=== PATIENT | male | born 1955 | race Caucasian/White ===

== ENCOUNTER 2021-09-18 14:23 | Emergency (ER) | payer MEDICARE, SELFPAY ==
[2021-09-18 14:28] VITALS: BP 202/93; PULSE 76; RESP 22; TEMP 36.6; O2SAT 100; BMI 26.3
--- NOTE | 2021-09-18 14:37 | XR_ITS ---
WS: [id number] Portable AP upright chest, 09/18/2021 Clinical Data: chest pain Comparison: Portable chest, 09/23/2017. Findings: No nodules, masses or effusions are seen. The heart is normal. The pulmonary vascularity is not increased. No pneumonia or pneumothorax is seen. The aortic arch and descending thoracic aorta s how tortuosity. Monitor leads are on the chest wall. XR/XR chest 1V portable [id number] Impression: Atherosclerosis.
--- NOTE | 2021-09-18 14:37 | ECG_ITS ---
[facility] Test Date: 2021-09-18 Pat Name: Deny Santiago Department: Room: Gender: Male Crm Developer: : 1955 Requested By: Levon Porter Order Number: [id number] Lakisha MD: Luis Manuel Duff M.D. Measurements Intervals [place] Rate: 89 P: 39 IN: 191 QRS: 46 QRSD: 102 T: 8 QT: 373 QTc: 456 Interpretive Statements SINUS RHYTHM WITH OCCASIONAL VENTRICULAR PREMATURE COMPLEXES INCOMPLETE RIGHT BUNDLE BRANCH BLOCK [90+ ms QRS DURATION, TERMINAL R IN V1/V2, 40+ ms S IN I/aVL/V4/V5/V6] NONSPECIFIC T-WAVE ABNORMALITY Compared to ECG 09/23/2017 17:57:59 Ventricular premature complex(es) now present Incomplete right bundle-branch block now present First degree AV block no longer present T-wave abnormality still present Electronically Signed On 09-18-2021 20:42:56 CDT by Luis Manuel Duff M.D. [email or web address] Values/store/NU/[id number] f
[2021-09-18] MEDS: aspirin 81 mg Chew Tablet 324 MG PO (14:45)
--- NOTE | 2021-09-18 14:45 | W.ED.CHESTPA ---
HPI - Chest Pain General: Chief Complaint: Chest Pain Stated Complaint: SOB/tingling of feet/chest pressure Time Seen by Provider: 09/18/21 14:37 Source: patient Mode of arrival: ambulatory Limitations: no limitations History of Present Illness: 66-year-old male presents emergency room complaining of chest pain and pressure or shortness of breath. Began he had been riding a tractor baling hay he was outside for about 30 minutes. He began to have some palpitations he states is felt like his heart relieve out of his chest. He has no known coronary artery disease he is not diabetic nor does he smoke. No previous cardiac evaluation. Does state the pain radiates into his shoulders and his neck. At the worst the pain is a 4-5 it is now down to a 2. MD complaint: chest pain Onset (ago): minute(s) Timing of current episode: episodic Prior episodes: Yes Onset: during rest Pain location: substernal and left chest Pain radiation: neck, left shoulder and right shoulder Severity: moderate Quality: aching and heaviness Relieving factors: rest Exacerbating factors: nothing Associated symptoms: Reports dyspnea and sense of impending doom; Deny abdominal pain, diaphoresis, fever(s), leg edema, nausea, palpitations, syncope or vomiting Treatment prior to arrival: none Review of Systems Const: Denies: fever(s) or diaphoresis ENMT: Denies: throat pain, ear or mastoid pain, nasal discharge or nasal congestion Card: Denies: palpitations or syncope Resp: Reports: dyspnea GI: Denies: abdominal pain, nausea or vomiting : Denies: flank pain, dysuria, urinary frequency or urinary urgency Musc: Reports: neck pain Skin/Breast: Denies: rash or pruritus PFS ED PFSH: Medical History (Updated 09/18/21 @ 17:34 by Levon Britton DO) Hypertension Physical Exam Const: COMMON NORMALS: no acute distress GENERAL APPEARANCE: cooperative and comfortable ORIENTATION/CONSCIOUSNESS: Yes awake, Yes oriented to person, Yes oriented to place and Yes oriented to time HENMT: COMMON NORMALS: normocephalic, atraumatic and hearing grossly normal bilaterally HEAD & SCALP: normocephalic and atraumatic Neck/C-Spine: COMMON NORMALS: no JVD Resp: COMMON NORMALS: normal respiratory effort, No retractions, No use of accessory muscles and clear to auscultation bilaterally AUSCULTATION: clear to auscultation bilaterally Cardio: COMMON NORMALS: no JVD, regular rate, regular rhythm and No murmurs present (Cardio) RATE: regular rate RHYTHM: regular rhythm GI: COMMON NORMALS: Soft to palpation and No hepatosplenomegaly present AUSCULTATION: Yes normoactive bowel sounds PALPATION: Yes Soft to palpation, No Tenderness to palpation present (GI), No Guarding due to palpation present (GI) and Yes No hepatosplenomegaly present Extremity: COMMON NORMALS: normal to inspection, capillary refill normal, no clubbing, cyanosis or edema, no calf tenderness and no pedal edema Neuro: SENSORIUM/ORIENTATION: Yes oriented to person, Yes oriented to place and Yes oriented to time Skin: COMMON NORMALS: no rashes or lesions noted GENERAL SKIN EXAM: no rashes or lesions noted Course Vital Signs: Vital signs: Vital Signs Temperature 97.9 F 09/18/21 14:28 Pulse Rate 76 09/18/21 14:28 Respiratory Rate 22 H 09/18/21 14:28 Blood Pressure 202/93 09/18/21 14:28 Pulse Oximetry 100 09/18/21 14:28 MDM - Chest Pain Medical Decision Making Symptoms have resolved at this point. Patient states he feels fine and prefer to go home. We will start him on aspirin 81 mg daily also add isosorbide mononitrate his blood pressure is elevated yet. We will set him up for an outpatient Lexiscan sestamibi stress if she has any recurrence of symptoms or worsening symptoms return to the emergency room. Medical Records I reviewed the patient's medical records. Lab Data I reviewed the patient's lab results. : 09/18/21 14:40 09/18/21 14:40 Radiology Impressions Chest X-Ray 09/18/21 14:37 Impression: Atherosclerosis. Laboratory Results WBC 10.1 10^3/uL (4.0-10.0) H 09/18/21 14:40 RBC 5.09 10^6/uL (4.1-5.3) 09/18/21 14:40 Hgb 15.3 g/dL (11.7-16.6) 09/18/21 14:40 Hct 42.6 % (42.0-52.0) 09/18/21 14:40 MCV 83.7 fl (80-94) 09/18/21 14:40 MCH 30.1 pg (28.0-34.0) 09/18/21 14:40 MCHC 35.9 g/dL (30.0-36.0) 09/18/21 14:40 RDW 12.4 % (12.1-15.1) 09/18/21 14:40 Plt Count 284 10^3/cmm (130-400) 09/18/21 14:40 MPV 9.6 fL (7.4-10.4) 09/18/21 14:40 Neut % (Auto) 67.3 % 09/18/21 14:40 Lymph % (Auto) 20.1 % 09/18/21 14:40 [place] % (Auto) 10.0 % 09/18/21 14:40 Eos % (Auto) 1.9 % 09/18/21 14:40 Baso % (Auto) 0.5 % 09/18/21 14:40 Neut # (Auto) 6.82 10^3/uL (1.8-7.7) 09/18/21 14:40 Lymph # (Auto) 2.0 10^3/uL (0.8-4.8) 09/18/21 14:40 [place] # (Auto) 1.0 10^3/uL (0.2-0.9) H 09/18/21 14:40 Eos # (Auto) 0.2 10^3/uL (0.0-0.8) 09/18/21 14:40 Baso # (Auto) 0.1 10^3/uL (0.0-0.1) 09/18/21 14:40 Nucleated RBC % (auto) 0 % 09/18/21 14:40 Nucleated RBCs # 0.0 /100WBC 09/18/21 14:40 Sodium 139 mmol/L (136-145) 09/18/21 14:40 Potassium 3.7 mmol/L (3.5-5.1) 09/18/21 14:40 Chloride 102 mmol/L (98-107) 09/18/21 14:40 Carbon Dioxide 20 mmol/L (22-29) L 09/18/21 14:40 Anion Gap 20.7 (5-19) H 09/18/21 14:40 BUN 16 mg/dL (8-23) 09/18/21 14:40 Creatinine 1.0 mg/dL (0.7-1.2) 09/18/21 14:40 GFR Calculation 75.0 mL/min (90-130) L 09/18/21 14:40 Glucose 162 mg/dL (65-115) H 09/18/21 14:40 Calculated Osmolality 293 mOsm/kg (285-295) 09/18/21 14:40 Calcium 10.0 mg/dL (8.5-10.5) 09/18/21 14:40 Total Bilirubin 0.5 mg/dL (0.15-1.2) 09/18/21 14:40 AST 18 U/L (0-40) 09/18/21 14:40 ALT 22 U/L (0-41) 09/18/21 14:40 Alkaline Phosphatase 78 IU/L (40-130) 09/18/21 14:40 Troponin T Baseline 14 ng/L (0-15) 09/18/21 14:40 Troponin T 120 Minute 14.09 ng/L (0-15) 09/18/21 16:34 Delta Troponin T 0.09 ABS# (0-10) 09/18/21 16:34 Total Protein 8.0 g/dL (6.6-8.7) 09/18/21 14:40 Albumin 4.9 g/dL (3.5-5.2) 09/18/21 14:40 Globulin 3.1 g/dL (1.3-4.6) 09/18/21 14:40 Discharge Plan Discharge Patient Disposition: Home Clinical Impression: Atypical chest pain, Hypertension Condition: Stable Prescriptions: New aspirin 81 mg tablet,delayed release (DR/EC) 81 mg PO DAILY Qty: 30 0RF isosorbide mononitrate 30 mg tablet extended release 24 hr 30 mg PO DAILY Qty: 30 0RF No Action potassium chloride 10 mEq capsule, extended release 10 meq PO BID 0RF amlodipine 10 mg tablet 10 mg PO QAM 0RF hydrochlorothiazide 25 mg tablet 25 mg PO DAILY 0RF lisinopril 40 mg tablet 40 mg PO BID 0RF atenolol 50 mg tablet 50 mg PO QAM 0RF Sinus Nasal [place] 0.05 % [place],Non-Aerosol 2 spray INTRANASAL DAILY PRN (Reason: Sinus Symptoms) 0RF Discharge Orders: Discharge ED (Routine); Ordered 09/18/21 Ordered By: Levon Britton Discharge Diet: Usual diet Discharge Activity: Limit activity as instructed Patient Instructions: Opioid Safety Activity Restrictions/Additional Instructions: Avoid strenuous activity. Case management make arrangements for an outpatient cardiac stress test. Return if you have further problems. Continue baby aspirin daily. Coding Level of Care Code ED Implementation Analyst for Shaquille Fwd Exam Comprehensive
--- NOTE | 2021-09-18 14:46 | PC.NURSE ---
PT PLACED ON CONTINUOUS SPO2, NIBP, AND CM.
[2021-09-18] MEDS: nitroglycerin 1 gm/inch oint Pkt 1 INCH TOPICAL (14:49)
[2021-09-18 14:53] LABS: Basophils # 0.1 10^3/uL (0.0-0.1); Basophils % 0.5 %; Eosinophils # 0.2 10^3/uL (0.0-0.8); Eosinophils % 1.9 %; Hematocrit 42.6 % (42.0-52.0); Hemoglobin 15.3 g/dL (11.7-16.6); Lymphocytes % 20.1 %; Mean Corpuscular HGB Conc 35.9 g/dL (30.0-36.0); Mean Corpuscular Hemoglobin 30.1 pg (28.0-34.0); Mean Corpuscular Volume 83.7 fl (80-94); Mean Platelet Volume 9.6 fL (7.4-10.4); Neutrophils # 6.82 10^3/uL (1.8-7.7); Neutrophils % 67.3 %; Nucleated Red Blood Cells % 0 %; Platelet Count 284 10^3/cmm (130-400); Red Blood Count 5.09 10^6/uL (4.1-5.3); Red Cell Distribution Width 12.4 % (12.1-15.1); White Blood Count 10.1 10^3/uL (4.0-10.0)
[2021-09-18 15:15] LABS: Troponin(5th) Baseline 14 ng/L (0-15)
[2021-09-18 15:16] LABS: Alanine Aminotransferase 22 U/L (0-41); Albumin Level 4.9 g/dL (3.5-5.2); Alkaline Phosphatase 78 IU/L (40-130); Anion Gap 20.7 (5-19); Aspartate Amino Transferase 18 U/L (0-40); Blood Urea Nitrogen 16 mg/dL (8-23); Carbon Dioxide 20 mmol/L (22-29); Chloride 102 mmol/L (98-107); Globulin 3.1 g/dL (1.3-4.6); Glucose 162 mg/dL (65-115); Osmolality Calculated 293 mOsm/kg (285-295); Potassium 3.7 mmol/L (3.5-5.1); Sodium 139 mmol/L (136-145); Total Bilirubin 0.5 mg/dL (0.15-1.2)
--- NOTE | 2021-09-18 16:37 | ECG_ITS ---
[facility] Test Date: 2021-09-18 Pat Name: Deny Santiago Department: Room: Gender: Male Technical Illustrator: : 1955 Requested By: Levon Porter Order Number: [id number] Lakisha MD: Luis Manuel Duff M.D. Measurements Intervals [place] Rate: 75 P: 35 MD: 205 QRS: 33 QRSD: 98 T: -5 QT: 391 QTc: 438 Interpretive Statements SINUS RHYTHM NONSPECIFIC T-WAVE ABNORMALITY Compared to ECG 09/18/2021 13:42:48 Ventricular premature complex(es) no longer present Incomplete right bundle-branch block no longer present T-wave abnormality still present Electronically Signed On 09-18-2021 20:45:14 CDT by Luis Manuel Duff M.D. [email or web address]/store/OM/[id number]/[id number]
[2021-09-18 17:05] LABS: Troponin 5 2HR 14.09 ng/L (0-15)
[2021-09-18 17:40] LABS: Troponin 5 2HR Delta 0.09 ABS# (0-10)
[2021-09-18 17:55] VITALS: BP 143/94; PULSE 79; RESP 16; O2SAT 97
--- NOTE | 2021-09-21 08:08 | DCPLANNER ---
grievance manager had message to schedule an outpatient stress test for patient. grievance manager called phone number [phone] to speak with patient to confirm that patient wanted the stress test scheduled and to confirm who patient sees for primary care. grievance manager was unable to speak with patient and unable to leave a voicemail for patient.
== END 2021-09-18 17:56 | disposition home or self-care (01) ==
PROVIDERS: Emergency Provider Family Medicine
DX: R07.89 Other chest pain (principal); I10 Essential (primary) hypertension
CPT/HCPCS: 36415; 71045; 80053; 84484; 85025; 93005; 99285

== ENCOUNTER → 2022-01-20 09:24 | Outpatient (BNVA) | payer MEDICARE, SELFPAY | PROVIDERS: PCP Family Medicine Adult Medicine; Visit Provider Family Medicine Adult Medicine | DX: R73.09 Other abnormal glucose (principal); I10 Essential (primary) hypertension; R94.4 Abnormal results of kidney function studies; Z98.890 Other specified postprocedural states | CPT/HCPCS: 80053; 83036 ==

== ENCOUNTER → 2022-09-10 08:05 | Outpatient (BNVA) | payer MEDICARE, SELFPAY | PROVIDERS: PCP Family Medicine Adult Medicine; Visit Provider Family Medicine Adult Medicine | DX: I10 Essential (primary) hypertension (principal); R73.03 Prediabetes; R94.4 Abnormal results of kidney function studies | CPT/HCPCS: 80053; 80061; 83036; 85025 ==

== ENCOUNTER → 2022-12-16 12:29 | Outpatient (BNVA) | payer MEDICARE, SELFPAY | PROVIDERS: PCP Family Medicine Adult Medicine; Visit Provider Surgery | DX: K40.90 Unilateral inguinal hernia, without obstruction or gangrene, not specified as recurrent (principal) | CPT/HCPCS: 99203 ==

== ENCOUNTER 2023-02-02 05:45 | Day surgery (SDC) | payer MEDICARE, SELFPAY ==
[2023-02-02] VITALS (9 sets, daily range): BP systolic 125–165; BP diastolic 74–96; PULSE 56–66; RESP 14–17; TEMP 36.2–36.5; O2SAT 92–98; BMI 25.7
[2023-02-02] MEDS: sodium chloride 0.9% 1,000 ML 30 ML IV (06:28)
--- NOTE | 2023-02-02 06:29 | W.PM.OPSFHP ---
Same Day Surgery H&P Indication for Procedure/HPI DATE OF PROCEDURE: February 02, 2023 CHIEF COMPLAINT/INDICATIONFOR SURGICAL PROCEDURE: Left inguinal hernia PREOP DIAGNOSIS: left inguinal hernia PLANNED PROCEDURE: Operation Date: 02/02/23 07:00 [place] Procedures p 84780 [id number] lap possible open left inguinal hernia repair with mesh K40.90(Left) - Howard Aldridge MD Medications/Allergies* Home Medications Medication Instructions Recorded Confirmed Type oxymetazoline 0.05 % nasal spray 2 spray intranasal DAILY PRN Sinus 09/18/21 02/01/23 History (Sinus Nasal [place]) Symptoms aspirin 81 mg tablet,delayed 81 mg PO DAILY PRN Pain 01/20/22 02/01/23 History release Allergies/Adverse Reactions Allergy/AdvReac Type Severity Reaction Status Date / Time msg Allergy Intermediate ADR-Headach Uncoded 02/01/23 12:49 e Pertinent History/Comorbid Conditions* Medical History (Updated 12/02/22 @ 09:29 by Felix Cabrera MD) Decreased calculated GFR Elevated glucose level Hypertension Inguinal hernia of left side without obstruction or gangrene New onset type 2 diabetes mellitus Hemoglobin A1c 6.4 on 09/10/2022. Obstructive sleep apnea on CPAP Surgical History (Updated 01/20/22 @ 09:12 by Felix Cabrera MD) History of colonoscopy 2008, he is to be scheduled at age of 68 Family History (Updated 12/16/22 @ 13:04 by JD Copeland) Hernia Grandfather Inguinal Social History Smoking and tobacco/nicotine status: never used tobacco/nicotine Alcohol intake: never Substance/Drug Use: never Caregiver/support person: No Lives independently: Yes Marital status: service: No Current occupational status: retired Current occupation: farming Do you think of yourself as: Straight/Heterosexual Current gender identity: Male Pertinent Exam Findings alert, oriented x 3, clear to auscultation bilaterally, regular rate & rhythm and operative site marked Recommendations Surgery/Procedure today Coding Level of Care Code Acute Code for Chg Fwd Diagnoses
--- NOTE | 2023-02-02 06:41 | P.ANESASSM_ITS ---
Pre-Anesthetic Assessment Height/Weight: Height 1.88 m Weight 90.718 kg Temp Pulse Resp BP Pulse Ox O2 Del Method 97.3 F L 66 17 165/96 97 Room Air 02/02/23 06:11 02/02/23 06:11 02/02/23 06:11 02/02/23 06:11 02/02/23 06:11 02/02/23 06:11 Preop Diagnosis: left inguinal hernia Operation Date: 02/02/23 07:00 Pro[place] Procedures p [id number] lap possible open left inguinal hernia repair with mesh K40.90(Left) - Howard Aldridge MD Familial anesthetic complications: None - eats eggs without issues Was Beta Steve taken within 24 hours: Yes Was Clonidine taken within 24 hours: N/A Last intake: Intake Last Liquid Date 02/01/23 Last Liquid Time 22:00 Last Solid Date 02/01/23 Last Solid Time 22:00 Social No alcohol and No tobacco Exam alert, oriented x 3, clear to auscultation bilaterally and regular rate & rhythm Airway Mallampati: Class II Dentition: other (bridge) Pulmonary Sleep Apnea CV/HEM Stable Angina (atypical, occurred during panic attack- no further episodes in several years, able to achieve > 4 METS without any symptoms) and Hypertension Metabolic Hyperlipidemia Anesthetic Plan ASA status: 3 Anesthesia: General Risk of > 500 ml blood loss (7ml/kg in children): No Medications/Allergies Home Medications Medication Instructions Recorded Confirmed Last Taken Type oxymetazoline 0.05 % nasal spray 2 spray intranasal DAILY PRN Sinus 09/18/21 02/01/23 09/17/21 History (Sinus Nasal [place]) Symptoms aspirin 81 mg tablet,delayed 81 mg PO DAILY PRN Pain 01/20/22 02/01/23 Unknown History release amlodipine 10 mg tablet 10 mg PO QAM #90 tabs 09/17/22 02/02/23 02/02/23 Rx potassium chloride 10 mEq 10 meq PO BID #180 caps 09/20/22 02/01/23 02/01/23 Rx capsule,extended release isosorbide mononitrate 30 mg 30 mg PO DAILY blood pressure and 10/06/22 02/02/23 02/02/23 Rx tablet,extended release 24 hr heart #90 tabs lisinopril 40 mg tablet 40 mg PO BID #180 tabs 10/06/22 02/01/23 02/01/23 Rx simvastatin 20 mg tablet 20 mg PO DAILY diabetes #90 tabs 10/06/22 02/01/23 02/01/23 Rx atenolol 50 mg tablet 50 mg PO QAM #90 tabs 12/16/22 02/02/23 02/02/23 Rx CPAP mask/suppies #1 ea 01/06/23 Unknown Rx Allergies Allergy/AdvReac Type Severity Reaction Status Date / Time msg Allergy Intermediate ADR-Headach Uncoded 02/01/23 12:49 e Current Medications Generic Name Dose Route Start Last Admin Trade Name Freq PRN Reason Stop Dose Admin Sodium Chloride 1,000 mls @ 30 mls/hr 02/02/23 06:00 02/02/23 06:28 Sodium Chloride 0.9% IV 02/03/23 05:59 30 mls/hr .Q24H SUSANA Administration PFSH Anesthesia Medical History Decreased calculated GFR Elevated glucose level Hypertension Inguinal hernia of left side without obstruction or gangrene New onset type 2 diabetes mellitus Hemoglobin A1c 6.4 on 09/10/2022. Obstructive sleep apnea on CPAP Surgical History History of colonoscopy 2008, he is to be scheduled at age of 68 Family History (Updated 12/16/22 @ 13:[address]) Grandfather Hernia Inguinal Social History Smoking and tobacco/nicotine status: never used tobacco/nicotine Alcohol intake: never Substance/Drug Use: never Caregiver/support person: No Lives independently: Yes Marital status: service: No Current occupational status: retired Current occupation: farming Do you think of yourself as: Straight/Heterosexual Current gender identity: Male Data Anesthesia Cardiac Studies: No Data to Display
[2023-02-02] MEDS: ceFAZolin 2,000 MG in sodium chloride 0.9% (plus) 50 ML 100 MG IV (07:00)
[2023-02-02] MEDS: BUPivacaine 0.25% INJ 10 mL INJECTION (08:16)
[2023-02-02] MEDS: lidocaine-epi 1% PF 1:200,000 30 mL SDV INJECTION (08:16)
--- NOTE | 2023-02-02 08:30 | PM.OP ---
Operative Report Date of procedure: February 02, 2023 Pre-op diagnosis: left inguinal hernia Post-op diagnosis: Same Procedure done: Laparoscopic left inguinal hernia repair with mesh. Implants: Extra-large 3D Max mesh Surgeon: Howard Aldridge MD Reference And Instruction Librarian: MEMO OR Staff Findings: Large left indirect inguinal hernia. Brief History: This is a 67-year-old male with a left inguinal hernia that is reducible on physical examination. After discussion of risk and benefits as documented in my clinic note we decided to proceed with laparoscopic possible open repair. Procedure: The patient was taken to the OR, placed in the supine position, general esthesia was given. Sanchez catheter was placed. The abdomen was prepped and draped in the usual sterile fashion, timeout was conducted. I then made a 1.5 cm infraumbilical incision, the incision was deepened to the level of the anterior rectus sheath, the anterior rectus sheath was opened and the muscle retracted laterally accessing the retrorectus space. The space maker was introduced and gently push to the level of the pubic bone. Under due to visualization the balloon was inflated until the preperitoneal space was developed. Balloon was removed and replaced with a 12 mm trocar. Additional 5 mm trocars were placed in the suprapubic and infraumbilical position. Dissection of the left space of Retzius and the space of Borgess was done in a blunt fashion. The dissection was initiated immediately at the level of the pubic symphysis until the Arian ligament was identified, I then developed the space laterally, this allowed me to identify an indirect inguinal hernia, the hernia was then carefully reduced vas deferens and spermatic vessels were from the hernia sac in the process. Once the hernia was completely reduced about 4 cm from the internal ring I then proceeded to place extra-large mesh on the left side. The mesh was tacked medially to the pubic bone, the direct indirect and femoral spaces were covered by the mesh, the preperitoneal space was desufflated under direct visualization. Trocars were removed. The anterior sheath was then closed with a #0 Vicryl. Wounds were closed with #4-0 Monocryl. Dermabond was applied. At the end of the procedure all counts were correct. The patient tolerated the procedure well, was extubated and transferred to the PACU in stable condition.
--- NOTE | 2023-02-02 09:13 | SUR.PHASEII ---
incision sites, dry and intact. no redness or drainage.
--- NOTE | 2023-02-02 10:01 | SUR.PREOP ---
09:50 RETURNED FROM RADIOLOGY. PT WITH C/O RIGHT BREAST PAIN. 10:00 MEDICATED FOR PAIN.
--- NOTE | 2023-02-02 10:15 | ANE.PACU2 ---
Inpatient post-anesthesia follow up: Airway intact: Yes Vital signs: Temperature 97.7 F Pulse Rate 61 Respiratory Rate 16 Blood Pressure 133/94 Pulse Oximetry 95 Oxygen Delivery Me thod Room Air Oxygen Flow Rate 6 Fraction of Inspir ed Oxygen Hydration adequate: Yes Nausea and vomiting: No Pain level: 1 Mental status: Baseline
== END 2023-02-02 10:15 | disposition home or self-care (01) ==
PROVIDERS: PCP Family Medicine Adult Medicine; Visit Provider Surgery
PROC: (CPT 49650; principal; 2023-02-02 07:00)
DX: K40.90 Unilateral inguinal hernia, without obstruction or gangrene, not specified as recurrent (principal); I10 Essential (primary) hypertension; E78.5 Hyperlipidemia, unspecified; Z79.82 Long term (current) use of aspirin; G47.33 Obstructive sleep apnea (adult) (pediatric)
CPT/HCPCS: 49650; 51702; J0131; J0690; J1100; J2405; J2704; J2710; J3010; J3490; J7030

== ENCOUNTER → 2023-02-14 07:58 | Outpatient (BNVA) | payer MEDICARE, SELFPAY | PROVIDERS: PCP Family Medicine Adult Medicine; Visit Provider Surgery | DX: Z98.890 Other specified postprocedural states (principal); Z87.19 Personal history of other diseases of the digestive system | CPT/HCPCS: 99024 ==

== ENCOUNTER → 2023-06-01 09:38 | Outpatient (BNVA) | payer MEDICARE, SELFPAY | PROVIDERS: PCP Family Medicine Adult Medicine; Visit Provider Family Medicine Adult Medicine | DX: E11.69 Type 2 diabetes mellitus with other specified complication (principal); I1A.0 Resistant hypertension; E78.5 Hyperlipidemia, unspecified | CPT/HCPCS: 80053; 80061; 83036 ==

== ENCOUNTER → 2023-07-06 07:44 | Outpatient (BNVA) | payer MEDICARE, SELFPAY | PROVIDERS: PCP Family Medicine Adult Medicine; Visit Provider Surgery | DX: K92.1 Melena (principal) | CPT/HCPCS: 99214 ==

== ENCOUNTER 2023-07-07 08:10 | Outpatient (CLI) | payer MEDICARE, SELFPAY | END 2023-07-07 08:11 | disposition home or self-care (01) | LOC: LAB 08:11 | PROVIDERS: PCP Family Medicine Adult Medicine; Visit Provider Surgery | DX: K92.1 Melena (principal) | CPT/HCPCS: 82274 ==

== ENCOUNTER 2023-11-10 05:32 | Day surgery (SDC) | payer MEDICARE, SELFPAY ==
[2023-11-10 05:59] VITALS: BP 155/96; PULSE 62; RESP 18; TEMP 36.2; O2SAT 97; BMI 27.8
--- NOTE | 2023-11-10 05:59 | P.HP_ITS ---
Same Day Surgery H&P Indication for Procedure/HPI DATE OF PROCEDURE: November 10, 2023 CHIEF COMPLAINT/INDICATIONFOR SURGICAL PROCEDURE: need for screening colonoscopy PREOP DIAGNOSIS: need for screening colonoscopy PLANNED PROCEDURE: Operation Date: 11/10/23 07:00 Proposed Procedures p Colonoscopy 95518, G0105, K92.1(Not Applicable) - Howard Aldridge MD Medications/Allergies* Home Medications Medication Instructions Recorded Confirmed Type oxymetazoline 0.05 % nasal spray 2 spray intranasal DAILY PRN Sinus 09/18/21 11/10/23 History (Sinus Nasal [place]) Symptoms aspirin 81 mg tablet,delayed 81 mg PO DAILY PRN Pain 01/20/22 11/10/23 History release Allergies/Adverse Reactions Allergy/AdvReac Type Severity Reaction Status Date / Time msg Allergy Intermediate ADR-Headach Uncoded 11/10/23 05:57 e Pertinent History/Comorbid Conditions* Medical History (Updated 10/07/23 @ 07:33 by Felix Cabrera MD) Elevated blood pressure reading in office with diagnosis of hypertension Impacted cerumen of left ear Rectal bleeding Dyslipidemia due to type 2 diabetes mellitus New onset type 2 diabetes mellitus Hemoglobin A1c 6.4 on 09/10/2022. Obstructive sleep apnea on CPAP Decreased calculated GFR Hypertension Surgical History (Updated 09/08/23 @ 11:04 by Felix Cabrera MD) Hx of inguinal hernia repair 02/02/23 Dr Aldridge lap left inguinal hernia repair with mesh History of colonoscopy 2008, he is to be scheduled at age of 68 Family History (Updated 07/06/23 @ 08:02 by JD Copeland) Colon cancer Grandfather Uncle/Aunts also have colon cancer Hernia Grandfather Inguinal Social History Smoking and tobacco/nicotine status: never used tobacco/nicotine Alcohol intake: never Substance/Drug Use: never Caregiver/support person: No Lives independently: Yes Marital status: service: No Current occupational status: retired Current occupation: farming Do you think of yourself as: Straight/Heterosexual Current gender identity: Male Pertinent Exam Findings alert, oriented x 3 and clear to auscultation bilaterally Recommendations Surgery/Procedure today Coding Level of Care Code Acute Code for Chg Fwd
[2023-11-10] MEDS: sodium chloride 0.9% 1,000 ML 30 ML IV (06:10)
[2023-11-10 06:14] LABS: Glucose Point of Care 106 mg/dL (70-110)
--- NOTE | 2023-11-10 06:48 | P.ANESASSM_ITS ---
Pre-Anesthetic Assessment Height/Weight: Height 1.83 m Weight 92.986 kg Temp Pulse Resp BP Pulse Ox O2 Del Method 97.2 F L 62 18 155/96 97 Room Air 11/10/23 05:59 11/10/23 05:59 11/10/23 05:59 11/10/23 05:59 11/10/23 05:59 11/10/23 05:59 Preop Diagnosis: need for screening colonoscopy Operation Date: 11/10/23 07:00 Proposed Procedures p Colonoscopy 09994, G0105, K92.1(Not Applicable) - Howard Aldridge MD Was Beta Steve taken within 24 hours: Yes Was Clonidine taken within 24 hours: N/A Last intake: Intake Last Liquid Date 11/09/23 Last Liquid Time 23:00 Last Solid Date 11/09/23 Last Solid Time 06:30 Social No alcohol and No tobacco Exam alert, oriented x 3, clear to auscultation bilaterally and regular rate & rhythm Airway Submandibular: within normal limits Cervical ROM: within normal limits Mallampati: Class II History/ROS No significant history except as noted Pulmonary Sleep Apnea compliant with cpap, setting 11. CV/HEM Hypertension METS > 4 None reported Hepatic None reported GI None reported Metabolic None reported Musc/skel None reported Neuropsych None reported bells palsy 20 years ago, resolved Anesthetic Plan ASA status: 2 Anesthesia: Anesthesia Evaluation and MAC Risk of > 500 ml blood loss (7ml/kg in children): Yes, adequate IV access and fluids planned Medications/Allergies Home Medications Medication Instructions Recorded Confirmed Last Taken Type oxymetazoline 0.05 % nasal spray 2 spray intranasal DAILY PRN Sinus 09/18/21 11/10/23 09/17/21 History (Sinus Nasal [place]) Symptoms aspirin 81 mg tablet,delayed 81 mg PO DAILY PRN Pain 01/20/22 11/10/23 Unknown History release CPAP mask/suppies #1 ea 01/06/23 11/07/23 Unknown Rx simvastatin 20 mg tablet 20 mg PO DAILY diabetes #90 tabs 04/08/23 11/10/23 11/09/23 Rx amlodipine 10 mg tablet 10 mg PO QAM #90 tabs 06/08/23 11/10/23 11/10/23 Rx lisinopril 40 mg tablet See Rx Instructions .Route 09/02/23 11/10/23 11/09/23 Rx .COMPLEX #180 tabs atenolol 50 mg tablet 50 mg PO QAM #90 tabs 09/13/23 11/10/23 11/10/23 Rx potassium chloride 10 mEq 10 meq PO BID hypokalemia #180 tabs 10/13/23 11/10/23 11/09/23 Rx tablet,extended release isosorbide mononitrate 30 mg 30 mg PO DAILY blood pressure and 10/27/23 11/10/23 11/10/23 Rx tablet,extended release 24 hr heart #90 tabs Allergies Allergy/AdvReac Type Severity Reaction Status Date / Time msg Allergy Intermediate ADR-Headach Uncoded 11/10/23 05:57 e Current Medications Generic Name Dose Route Start Last Admin Trade Name Freq PRN Reason Stop Dose Admin Sodium Chloride 1,000 mls @ 30 mls/hr 11/10/23 06:00 11/10/23 06:10 Sodium Chloride 0.9% IV 30 mls/hr .Q24H SUSANA Administration PFSH Anesthesia Medical History (Updated 10/07/23 @ 07:33 by Felix Cabrera MD) Elevated blood pressure reading in office with diagnosis of hypertension Impacted cerumen of left ear Rectal bleeding Dyslipidemia due to type 2 diabetes mellitus New onset type 2 diabetes mellitus Hemoglobin A1c 6.4 on 09/10/2022. Obstructive sleep apnea on CPAP Decreased calculated GFR Hypertension Surgical History (Updated 09/08/23 @ 11:04 by Felix Cabrera MD) Hx of inguinal hernia repair 02/02/23 Dr Aldrideg lap left inguinal hernia repair with mesh History of colonoscopy 2008, he is to be scheduled at age of 68 Family History (Updated 07/06/23 @ 08:02 by JD Copeland) Grandfather Hernia Inguinal Grandfather Colon cancer Uncle/Aunts also have colon cancer Social History Smoking and tobacco/nicotine status: never used tobacco/nicotine Alcohol intake: never Substance/Drug Use: never Caregiver/support person: No Lives independently: Yes Marital status: service: No Current occupational status: retired Current occupation: farming Do you think of yourself as: Straight/Heterosexual Current gender identity: Male Data Anesthesia Cardiac Studies: No Data to Display
[2023-11-10 07:29] VITALS: BP 84/56; PULSE 50; RESP 18; TEMP 36.1; O2SAT 95
[2023-11-10 07:40] VITALS: BP 89/60; PULSE 72; RESP 16; O2SAT 96
[2023-11-10 07:52] VITALS: BP 104/58; PULSE 67; RESP 18; O2SAT 94
--- NOTE | 2023-11-10 08:40 | ANE.PACU2 ---
Inpatient post-anesthesia follow up: Airway intact: Yes Vital signs: Temperature 97 F Pulse Rate 67 Respiratory Rate 18 Blood Pressure 104/58 Pulse Oximetry 94 Oxygen Delivery Me thod Room Air Oxygen Flow Rate Fraction of Inspir ed Oxygen Hydration adequate: Yes Nausea and vomiting: No Pain level: 1 Mental status: Baseline
== END 2023-11-10 08:41 | disposition home or self-care (01) ==
PROVIDERS: PCP Family Medicine Adult Medicine; Visit Provider Surgery
PROC: 0DJD8ZZ Inspection of Lower Intestinal Tract, Via Natural or Artificial Opening Endoscopic (ICD-10-PCS; CPT 45378; principal; 2023-11-10 07:00)
DX: Z12.11 Encounter for screening for malignant neoplasm of colon (principal); D12.2 Benign neoplasm of ascending colon; D12.4 Benign neoplasm of descending colon; E11.69 Type 2 diabetes mellitus with other specified complication; E78.5 Hyperlipidemia, unspecified; G47.33 Obstructive sleep apnea (adult) (pediatric); I10 Essential (primary) hypertension; Z99.89 Dependence on other enabling machines and devices
CPT/HCPCS: 36416; 45380; 45385; 82962; 88305; J2704; J7030

== ENCOUNTER → 2023-12-02 08:39 | Outpatient (BNVA) | payer MEDICARE, SELFPAY | PROVIDERS: PCP Family Medicine Adult Medicine; Visit Provider Surgery | DX: Z09 Encounter for follow-up examination after completed treatment for conditions other than malignant neoplasm (principal) | CPT/HCPCS: 99213 ==

== ENCOUNTER 2024-11-20 19:58 | Outpatient (CLI) | payer MEDICARE, SELFPAY | END 2024-11-20 19:59 | disposition home or self-care (01) | LOC: SLEEP 19:59 | PROVIDERS: PCP Family Medicine Adult Medicine; Visit Provider Internal Medicine Pulmonary Disease | DX: G47.33 Obstructive sleep apnea (adult) (pediatric) (principal) | CPT/HCPCS: 95810 ==

== ENCOUNTER 2025-01-04 07:01 | Outpatient (CLI) | payer MEDICARE, SELFPAY ==
--- NOTE | 2025-01-04 07:06 | CT_ITS ---
WS: [id number] CT HEAD NONCONTRAST HISTORY: LEFT FACIAL NUMBNESS, LEFT ARM PAIN TECHNIQUE: Contiguous axial imaging performed through the brain. Bone and soft tissue windows. Sagittal and coronal reformats reviewed. All CT scans at [facility] use at least one of these dose optimization techniques: automated exposure control; mA and/or kV adjustment per patient size (includes targeted exams where dose is matched to clinical indication); or iterative reconstruction. DLP: 1072.68 mGy.cm COMPARISON: 05/04/2017 No acute intracranial hemorrhage, midline shift or mass effect. Mild symmetric atrophy. Minimal small vessel disease. No prior infarcts. There is a very tiny age-indeterminate but probable remote infarct in the posterior limb RIGHT internal capsule. Ventricles: Normal size with no hydrocephalus. No inferior displacement of the cerebellar tonsils. Paranasal sinuses: As visualized are clear. Mastoid air cells: Well pneumatized. Calvarium and scalp: Skull is intact with no soft tissue edema or swelling. CT/CT head wo con* [id number] IMPRESSION: 1. No acute intracranial hemorrhage or edema. 2. Mild cerebral atrophy and minimal small vessel disease. No prior infarct. 3. Remote appearing tiny lacunar infarct posterior limb RIGHT internal capsule .
== END 2025-01-04 07:02 | disposition home or self-care (01) ==
LOC: RAD 07:02
PROVIDERS: PCP Nurse Practitioner Family; Visit Provider Nurse Practitioner Family
DX: R20.0 Anesthesia of skin (principal); M79.602 Pain in left arm; G31.89 Other specified degenerative diseases of nervous system; I67.89 Other cerebrovascular disease
CPT/HCPCS: 70450